=== PATIENT | female | born 1990 | race Caucasian/White ===

== ENCOUNTER 2019-06-24 04:34 | Observation (INO) ==
[2019-06-24] MEDS ORDERED: ALUM/MAG/SIMETH/LIDO VISC 1:1 30 ML BOTTLE PO STA (05:25)
[2019-06-24 05:51] LABS: Basophils # 0.1 10*3/uL (0.0-0.2); Basophils % 0.8 % (0.0-0.8); Eosinophils # 0.2 10*3/uL (0.0-0.87); Eosinophils % 2.6 % (0.00-10.9); Hematocrit 42.4 VOL% (35.7-47.0); Hemoglobin 13.7 GM/DL (12.0-16.0); Immature Granulocytes % 0.3 %; Immature Granulocytes Absolute 0.03 #; Lymphocytes # 2.3 10*3/uL (1.4-4.0); Lymphocytes % 25.1 % (21.3-54.2); Mean Corpuscular HGB Conc 32.3 GM/DL (32-36); Mean Corpuscular Volume 87.6 FL (87-102); Mean Platelet Volume 10.2 FL (9.6-12.0); Monocytes % 6.8 % (1.7-12.7); Neutrophils % 64.4 % (38.7-73.9); Platelet Count 296 T/CUMM (130-400); Red Blood Count 4.84 MC/CUMM (3.8-5.5); Red Cell Distribution Width 13.4 % (9.3-17.3); White Blood Count 9.2 T/CUMM (4-12)
[2019-06-24 06:18] LABS: Apearance,Urine CLOUDY (Clear); Bacteria,Urine Occasional /HPF (Few); Bilirubin,Urine Negative (Negative); Blood, Urine Negative (Negative); Glucose,Urine (UA) Negative (Negative); Ketones,Urine Negative (Negative); Mucus,Urine Occasional /LPF (Occasional); Nitrite,Urine Negative (Negative); Protein,Urine Negative; RBC,Urine 6 /HPF (0-4); Squamous Epithelial Cell,Urine Many /HPF (0-10); Urine Color Yellow (Yellow); Urine Specific Gravity 1.019 (1.001-1.035); Urine Urobilinogen < 2.0 EU/DL (0.2-1.0); WBC,Urine 7 /HPF (0-6)
[2019-06-24] MEDS ORDERED: DEXTROSE 5% LACTATED RINGERS 1,000 ML IV SCH (06:30)
[2019-06-24 06:34] LABS: Alanine Aminotransferase 23 U/L (13-56); Albumin 3.7 G/DL (3.4-5.0); Alkaline Phosphatase 81 U/L (45-117); Aspartate Amino Transferase 17 U/L (0-37); Bilirubin,Total < 0.39 MG/DL (0.2-1.0); Blood Urea Nitrogen 9 MG/DL (7-18); Calcium 9.1 MG/DL (8.5-10.1); Estimated Glom Filtration Rate 104 ML/MIN; Glucose 90 MG/DL (74-106); Osmolality,Calculated 271.8 MOS/KG (273-304); Total Protein 7.4 G/DL (6.4-8.3)
[2019-06-24] MEDS: HYDROmorphone 2 MG/1 ML VIAL IV PRN ×2 (06:45→12:57)
[2019-06-24] MEDS: ONDANSETRON 4 MG/2 ML VIAL IV PRN ×2 (06:45→12:56)
[2019-06-24] MEDS ORDERED: ceFAZolin 1,000 MG in SYRINGE 1 EACH IV ONE (07:34)
[2019-06-24] MEDS ORDERED: TISSUE ADHESIVE 1 EACH APPLICATOR TOP ONE (10:18)
[2019-06-24] MEDS ORDERED: GLUCAGON 1 MG VIAL ONE (11:17)
[2019-06-24] MEDS ORDERED: propofoL 200 MG/20 ML VIAL IV ONE (12:03)
[2019-06-24] MEDS ORDERED: SEVOFLURANE 1 UNIT/15 MINUTE INH ONE (12:04)
[2019-06-24] MEDS ORDERED: MIDAZOLAM 2 MG/2 ML VIAL ONE (12:04)
[2019-06-24] MEDS ORDERED: LABETALOL 100 MG/20 ML VIAL IV ONE (12:04)
[2019-06-24] MEDS ORDERED: LIDOCAINE 2% 5 ML VIAL ONE (12:04)
[2019-06-24] MEDS ORDERED: DEXAMETHASONE 4 MG/1 ML VIAL ONE (12:04)
[2019-06-24] MEDS ORDERED: KETOROLAC 30 MG/1 ML VIAL ONE (12:04)
[2019-06-24] MEDS ORDERED: GLYCOPYRROLATE 0.4 MG/2 ML VIAL ONE (12:04)
[2019-06-24] MEDS ORDERED: fentaNYL 100 MCG/2 ML VIAL ONE (12:04)
[2019-06-24] MEDS ORDERED: ONDANSETRON 4 MG/2 ML VIAL ONE (12:04)
[2019-06-24] MEDS ORDERED: ROCURONIUM 100 MG/10 ML VIAL IV ONE (12:05)
[2019-06-24] MEDS ORDERED: NEOSTIGMINE 10 MG/10 ML VIAL ONE (12:05)
[2019-06-24] MEDS ORDERED: ACETAMINOPHEN 1,000 MG/100 ML VIAL IV ONE (12:05)
[2019-06-24] MEDS ORDERED: LACTATED RINGERS 2,000 ML IV ONE (12:05)
[2019-06-24 17:29] VITALS: BP 118/82
== END 2019-06-24 16:30 | disposition home or self-care (01) ==
LOC: N.ED 04:34 → N.EDINP 04:34 → N.3E 07:01
PROVIDERS: ADMIT Student in an Organized Health Care Education/Training Program; ATTEND Student in an Organized Health Care Education/Training Program
PROC: LAPCHOL (2019-06-24 10:25)